=== PATIENT | female | born 1975 | race Hispanic/Latino ===

== ENCOUNTER 2023-04-16 09:52 | Outpatient (RCR) | payer BC, SELFPAY | END 2023-04-16 23:59 | disposition home or self-care (01) | LOC: RPT 09:52 | PROVIDERS: ATTENDING PHYSICIAN Obstetrics & Gynecology; PRIMARYCARE PHYSICIAN Nurse Practitioner Adult Health | DX: R10.2 Pelvic and perineal pain (principal); Z73.6 Limitation of activities due to disability; R27.8 Other lack of coordination; M62.81 Muscle weakness (generalized) | CPT/HCPCS: 97110; 97140; 97162; 97530 ==

== ENCOUNTER 2023-05-12 18:43 | Outpatient (RCR) | payer BC, SELFPAY | END 2023-05-12 23:59 | disposition home or self-care (01) | LOC: RPT 18:43 | PROVIDERS: ATTENDING PHYSICIAN Obstetrics & Gynecology; PRIMARYCARE PHYSICIAN Nurse Practitioner Adult Health | DX: R10.2 Pelvic and perineal pain (principal); M62.81 Muscle weakness (generalized); R27.8 Other lack of coordination; Z73.6 Limitation of activities due to disability | CPT/HCPCS: 97140; 97530 ==

== ENCOUNTER → 2023-05-24 09:45 | Outpatient (REF) | payer BC, SELFPAY | LOC: MRI 3T 09:45 | PROVIDERS: ATTENDING PHYSICIAN Psychiatry & Neurology Neurology; FAMILY PHYSICIAN Nurse Practitioner Adult Health | DX: G43.909 Migraine, unspecified, not intractable, without status migrainosus (principal); M54.2 Cervicalgia | CPT/HCPCS: 70551; 72141 ==

== ENCOUNTER 2023-06-02 08:57 | Outpatient (RCR) | payer BC, SELFPAY | END 2023-06-02 23:59 | disposition home or self-care (01) | LOC: RPT 08:57 | PROVIDERS: ATTENDING PHYSICIAN Obstetrics & Gynecology; PRIMARYCARE PHYSICIAN Nurse Practitioner Adult Health | DX: R10.2 Pelvic and perineal pain (principal); N94.10 Unspecified dyspareunia; R15.2 Fecal urgency; M62.81 Muscle weakness (generalized); R27.8 Other lack of coordination; Z73.6 Limitation of activities due to disability | CPT/HCPCS: 97140; 97530 ==

== ENCOUNTER 2023-07-07 08:48 | Outpatient (RCR) | payer BC, SELFPAY | END 2023-07-07 23:59 | disposition home or self-care (01) | LOC: RPT 08:48 | PROVIDERS: ATTENDING PHYSICIAN Obstetrics & Gynecology; PRIMARYCARE PHYSICIAN Nurse Practitioner Adult Health | DX: R10.2 Pelvic and perineal pain (principal); N94.10 Unspecified dyspareunia; R15.2 Fecal urgency; M62.81 Muscle weakness (generalized); R27.8 Other lack of coordination | CPT/HCPCS: 97110; 97112; 97140; 97530 ==

== ENCOUNTER 2023-08-12 12:05 | Outpatient (RCR) | payer BC, SELFPAY | END 2023-08-12 23:59 | disposition home or self-care (01) | LOC: RPT 12:05 | PROVIDERS: ATTENDING PHYSICIAN Obstetrics & Gynecology; PRIMARYCARE PHYSICIAN Nurse Practitioner Adult Health | DX: R15.2 Fecal urgency (principal); M62.81 Muscle weakness (generalized); R27.8 Other lack of coordination; R10.2 Pelvic and perineal pain; N94.10 Unspecified dyspareunia | CPT/HCPCS: 97110; 97140; 97530 ==

== ENCOUNTER → 2023-08-25 14:35 | Outpatient (REF) | payer BC, SELFPAY | LOC: WDC 14:35 | PROVIDERS: ATTENDING PHYSICIAN Obstetrics & Gynecology; FAMILY PHYSICIAN Nurse Practitioner Adult Health | DX: Z12.31 Encounter for screening mammogram for malignant neoplasm of breast (principal) | CPT/HCPCS: 77063; 77067 ==

== ENCOUNTER 2023-09-09 09:26 | Outpatient (RCR) | payer BC, SELFPAY | END 2023-09-09 23:59 | disposition home or self-care (01) | LOC: RPT 09:26 | PROVIDERS: ATTENDING PHYSICIAN Obstetrics & Gynecology; PRIMARYCARE PHYSICIAN Nurse Practitioner Adult Health | DX: R10.2 Pelvic and perineal pain (principal); N94.10 Unspecified dyspareunia; R15.2 Fecal urgency; Z73.6 Limitation of activities due to disability; M62.81 Muscle weakness (generalized); R27.8 Other lack of coordination | CPT/HCPCS: 97112; 97140; 97530 ==

== ENCOUNTER 2023-10-20 11:00 | Outpatient (RCR) | payer BC, SELFPAY | END 2023-10-20 23:59 | disposition home or self-care (01) | LOC: RPT 11:00 | PROVIDERS: ATTENDING PHYSICIAN Obstetrics & Gynecology; PRIMARYCARE PHYSICIAN Nurse Practitioner Adult Health | DX: R10.2 Pelvic and perineal pain (principal); N94.10 Unspecified dyspareunia; R15.2 Fecal urgency; Z73.6 Limitation of activities due to disability; M62.81 Muscle weakness (generalized); R27.8 Other lack of coordination | CPT/HCPCS: 97140; 97530 ==

== ENCOUNTER → 2023-11-10 09:20 | Outpatient (REF) | payer BC, SELFPAY | LOC: RAD 09:20 | PROVIDERS: ATTENDING PHYSICIAN Obstetrics & Gynecology; FAMILY PHYSICIAN Nurse Practitioner Adult Health | DX: R10.2 Pelvic and perineal pain (principal) | CPT/HCPCS: 76830; 76856 ==

== ENCOUNTER 2023-12-12 09:03 | Outpatient (RCR) | payer BC, SELFPAY | END 2023-12-12 23:59 | disposition home or self-care (01) | LOC: RPT 09:03 | PROVIDERS: ATTENDING PHYSICIAN Obstetrics & Gynecology; PRIMARYCARE PHYSICIAN Nurse Practitioner Adult Health | DX: R10.2 Pelvic and perineal pain (principal); N94.10 Unspecified dyspareunia; R15.2 Fecal urgency; Z73.6 Limitation of activities due to disability; M62.81 Muscle weakness (generalized); R27.8 Other lack of coordination | CPT/HCPCS: 97110; 97140; 97530 ==

== ENCOUNTER 2023-12-19 09:07 | Outpatient (RCR) | payer BC, SELFPAY | END 2023-12-19 23:59 | disposition home or self-care (01) | LOC: RPT 09:07 | PROVIDERS: ATTENDING PHYSICIAN Obstetrics & Gynecology; PRIMARYCARE PHYSICIAN Nurse Practitioner Adult Health | DX: R10.2 Pelvic and perineal pain (principal); N94.10 Unspecified dyspareunia; R15.2 Fecal urgency; Z73.6 Limitation of activities due to disability; M62.81 Muscle weakness (generalized); R27.8 Other lack of coordination | CPT/HCPCS: 97110; 97140; 97530 ==

== ENCOUNTER → 2024-02-19 12:54 | Outpatient (REF) | payer BC, SELFPAY | LOC: RAD 12:54 | PROVIDERS: ATTENDING PHYSICIAN Internal Medicine Gastroenterology; FAMILY PHYSICIAN Nurse Practitioner Adult Health | DX: K59.09 Other constipation (principal) | CPT/HCPCS: 74018 ==

== ENCOUNTER → 2024-03-05 12:15 | Outpatient (REF) | payer BC, SELFPAY | LOC: HWRAD 12:15 | PROVIDERS: ATTENDING PHYSICIAN Internal Medicine Gastroenterology; FAMILY PHYSICIAN Nurse Practitioner Adult Health | DX: R74.8 Abnormal levels of other serum enzymes (principal) | CPT/HCPCS: 76700 ==

== ENCOUNTER 2024-05-21 06:27 | Day surgery (SDC) | payer BC, SELFPAY | END 2024-05-21 11:52 | disposition home or self-care (01) | LOC: GI 06:27 | PROVIDERS: ATTENDING PHYSICIAN Internal Medicine Gastroenterology; FAMILY PHYSICIAN Nurse Practitioner Adult Health | DX: Z12.11 Encounter for screening for malignant neoplasm of colon (principal); D12.2 Benign neoplasm of ascending colon; D12.3 Benign neoplasm of transverse colon; K57.30 Diverticulosis of large intestine without perforation or abscess without bleeding; K29.50 Unspecified chronic gastritis without bleeding; K20.90 Esophagitis, unspecified without bleeding; K31.89 Other diseases of stomach and duodenum; K31.7 Polyp of stomach and duodenum; R10.10 Upper abdominal pain, unspecified; K30 Functional dyspepsia; Z80.0 Family history of malignant neoplasm of digestive organs | CPT/HCPCS: 45385; 43239; 88305; 88342 ==

== ENCOUNTER → 2024-08-30 10:28 | Outpatient (REF) | payer BC, SELFPAY | LOC: WDC 10:28 | PROVIDERS: ATTENDING PHYSICIAN Nurse Practitioner Adult Health | DX: Z12.31 Encounter for screening mammogram for malignant neoplasm of breast (principal) | CPT/HCPCS: 77063; 77067 ==

== ENCOUNTER → 2024-09-14 09:00 | Outpatient (REF) | payer BC, SELFPAY | LOC: WDC 09:00 | PROVIDERS: ATTENDING PHYSICIAN Nurse Practitioner Adult Health | DX: R92.8 Other abnormal and inconclusive findings on diagnostic imaging of breast (principal) | CPT/HCPCS: 76642 ==

== ENCOUNTER 2024-12-13 15:31 | Outpatient (RCR) | payer BC, SELFPAY | END 2024-12-13 23:59 | disposition home or self-care (01) | LOC: RPT 15:31 | PROVIDERS: ATTENDING PHYSICIAN Internal Medicine Rheumatology; FAMILY PHYSICIAN Nurse Practitioner Adult Health | DX: M79.7 Fibromyalgia (principal); Z73.6 Limitation of activities due to disability; R20.0 Anesthesia of skin | CPT/HCPCS: 97110; 97112; 97162 ==

== ENCOUNTER 2025-01-13 12:05 | Outpatient (RCR) | payer BC, SELFPAY | END 2025-01-13 23:59 | disposition home or self-care (01) | LOC: RPT 12:05 | PROVIDERS: ATTENDING PHYSICIAN Internal Medicine Rheumatology; FAMILY PHYSICIAN Nurse Practitioner Adult Health | DX: M79.7 Fibromyalgia (principal); Z73.6 Limitation of activities due to disability; R20.0 Anesthesia of skin | CPT/HCPCS: 97110; 97112 ==

== ENCOUNTER → 2025-01-17 07:03 | Outpatient (REF) | payer BC, SELFPAY | LOC: PAVMRI 07:03 | PROVIDERS: ATTENDING PHYSICIAN Psychiatry & Neurology Neurology; FAMILY PHYSICIAN Nurse Practitioner Adult Health | DX: R41.3 Other amnesia (principal) | CPT/HCPCS: 70551 ==

== ENCOUNTER 2025-01-27 12:29 | Outpatient (RCR) | payer BC, SELFPAY | END 2025-01-27 23:59 | disposition home or self-care (01) | LOC: RPT 12:29 | PROVIDERS: ATTENDING PHYSICIAN Internal Medicine Rheumatology; FAMILY PHYSICIAN Nurse Practitioner Adult Health | DX: M79.7 Fibromyalgia (principal); Z73.6 Limitation of activities due to disability; R20.0 Anesthesia of skin | CPT/HCPCS: 97110; 97112; 97140 ==